=== PATIENT | female | born 1955 | race Caucasian/White ===

== ENCOUNTER 2024-08-07 20:30 | Inpatient (IN) | payer MEDICARE ==
[~2024-08-07] VITALS: Ht 149.9 cm; Wt 72.6 kg
[2024-08-07 21:42] LABS: COVID AG,FIA SOURCE NASAL SWAB
[2024-08-07 21:50] LABS: BASOPHILS % (AUTO) 0.9 % (0.0-2.0); EOSINOPHILS % (AUTO) 3.6 % (1.0-6.0); HEMOGLOBIN 13.5 g/dL (12.0-16.0); LYMPHOCYTES # (AUTO) 1.2 K/uL (1.0-4.8); LYMPHOCYTES % (AUTO) 24.7 % (22.0-44.0); MEAN CORPUSCULAR VOLUME 88 fL (80-100); MONOCYTES # (AUTO) 0.4 K/uL (0.1-1.0); MONOCYTES % (AUTO) 7.4 % (2.0-9.0); NEUTROPHILS # (AUTO) 3.2 K/uL (1.8-7.7); NEUTROPHILS % (AUTO) 63.4 % (40.0-70.0); PLATELET COUNT (AUTO) 163 K/uL (150-450); RED BLOOD CELL COUNT(AUTO) 4.66 MIL/uL (4.00-5.20); RED CELL DISTRIBUTION WIDTH 13.6 % (11.5-14.5)
[2024-08-07 21:53] LABS: ANION GAP 11 mmol/L (8-16); CALCIUM, TOTAL 9.4 mg/dL (8.8-10.5); CARBON DIOXIDE 28 mmol/L (22-29); CHLORIDE 103 mmol/L (98-107); CREATININE 0.84 mg/dL (0.60-1.30); GLOMERULAR FILTR. RATE CALC > 60 mL/min (>60); GLUCOSE,RANDOM 237 mg/dL (70-110); POTASSIUM 4.1 mmol/L (3.5-5.1); SODIUM SERUM 141 mmol/L (136-145); UREA NITROGEN, BLOOD 19 mg/dL (7-18)
[2024-08-07 22:03] LABS: SARS-COV2 (COVID) ANTIGEN,FIA Negative (Negative)
[2024-08-07 22:11] LABS: ALCOHOL, BLOOD (SERUM) < 3 mg/dL (0-10)
[2024-08-07] MEDS ORDERED: OXYC10TA92 PO (22:12)
[2024-08-07] MEDS ORDERED: BUTA1CAP44 PO (22:12)
[2024-08-07 22:47] LABS: PH,URINE DRUG SCREEN 5.5 (5.0-8.0)
[2024-08-07 22:54] LABS: ALCOHOL, URINE DRUG SCREEN NEGATIVE (NEGATIVE); AMPHET/METH SCREEN,URINE POSITIVE (NEGATIVE); BARBITURATE SCREEN, URINE POSITIVE (NEGATIVE); BENZODIAZEPINES SCREEN,URINE NEGATIVE (NEGATIVE); CANNABINOID SCREEN,URINE POSITIVE (NEGATIVE); COCAINE SCREEN,URINE NEGATIVE (NEGATIVE); METHADONE SCREEN, URINE NEGATIVE (NEGATIVE); OPIATE SCREEN,URINE NEGATIVE (NEGATIVE); PHENCYCLIDINE SCREEN,URINE NEGATIVE (NEGATIVE)
[2024-08-08] VITALS (7 sets, daily range): BP systolic 139–147; BP diastolic 69–93; PULSE 78–107; RESP 16–18; TEMP 97.2–97.6; O2SAT 95–98
[2024-08-08] MEDS ORDERED: ZOLPIDEM TARTRATE 10 MG TABLET PO PRN (01:00)
[2024-08-08] MEDS ORDERED: LORazepam 2 MG TABLET PO PRN (01:00)
[2024-08-08] MEDS ORDERED: HALOPERIDOL 5 MG TABLET PO PRN (01:00)
[2024-08-08] MEDS ORDERED: BENZOCAINE/MENTHOL LOZENGE PO PRN (08:15)
[2024-08-08] MEDS ORDERED: ACETAMINOPHEN 325 MG TABLET PO PRN (08:15)
[2024-08-08] MEDS ORDERED: BACITRACIN 28 GM OINTMENT TP PRN (08:15)
[2024-08-08] MEDS ORDERED: PETROLATUM,WHITE 28 GM JELLY TP PRN (08:15)
[2024-08-08] MEDS ORDERED: MAG HYDROX/ALUMINUM HYD/SIMETH ES 30 ML SUSPENSION UDCUP PO PRN (08:15)
[2024-08-08] MEDS ORDERED: ALBUTEROL SULFATE HFA 90 MCG/PUFF 8 GM INHALER IH PRN (08:15)
[2024-08-08] MEDS ORDERED: CloNIDine HCL 0.1 MG TABLET PO PRN (08:15)
[2024-08-08] MEDS ORDERED: MAGNESIUM HYDROXIDE SUSPENSION 30 ML UDCUP PO PRN (08:15)
[2024-08-08] MEDS ORDERED: OMEPRAZOLE 20 MG CAPSULE PO PRN (08:15)
[2024-08-08] MEDS ORDERED: ONDANSETRON 4 MG TABLET PO PRN (08:15)
[2024-08-08] MEDS ORDERED: DOCUSATE SODIUM 100 MG CAPSULE PO PRN (08:15)
[2024-08-08] MEDS: ATENOLOL 25 MG TABLET PO SCH (08:59)
[2024-08-08] MEDS ORDERED: BUTALBITAL/ASPIRIN/CAFFEINE 50-325-40 MG CAPSULE PO PRN (14:45)
[2024-08-08] MEDS: IBUPROFEN 600 MG TABLET PO PRN (22:29)
[2024-08-09 08:51] LABS: ALANINE AMINOTRANSFERASE 46 U/L (12-78); ALBUMIN 3.3 g/dL (3.4-5.0); ALKALINE PHOSPHATASE 89 U/L (46-116); ANION GAP 10 mmol/L (8-16); ASPARTATE AMINOTRANSFERASE 23 U/L (15-37); BILIRUBIN,TOTAL 0.4 mg/dL (0.1-1.0); CALCIUM, TOTAL 9.4 mg/dL (8.8-10.5); CARBON DIOXIDE 25 mmol/L (22-29); CHLORIDE 105 mmol/L (98-107); CHOL/HDL RATIO 3.5 (3.9-5.7); CHOLESTEROL 170 mg/dL (131-200); CREATININE 0.74 mg/dL (0.60-1.30); GLOMERULAR FILTR. RATE CALC > 60 mL/min (>60); GLUCOSE,RANDOM 163 mg/dL (70-110); HDL CHOLESTEROL 49 mg/dL (40-60); LDL CHOL (CALC.) 95 mg/dL (0-130); POTASSIUM 4.3 mmol/L (3.5-5.1); SODIUM SERUM 140 mmol/L (136-145); THYROID STIMULATING HORMONE 0.57 uIU/mL (0.36-3.74); TOTAL PROTEIN, SERUM 6.3 g/dL (6.4-8.2); TRIGLYCERIDES 128 mg/dL (15-150); UREA NITROGEN, BLOOD 18 mg/dL (7-18)
[2024-08-09 09:41] VITALS: BP 166/90; PULSE 90; RESP 18; TEMP 97.9; O2SAT 100
[2024-08-09 10:39] VITALS: BP 155/80; PULSE 84; RESP 16; O2SAT 100
[2024-08-09] MEDS: LOPERAMIDE HCL 2 MG CAPSULE PO PRN (11:23)
[2024-08-09 12:41] VITALS: BP 148/82; PULSE 82; RESP 17; O2SAT 100
[2024-08-09] MEDS: OxyCODONE HCL 5 MG IR TABLET PO PRN (12:41)
[2024-08-09 13:41] VITALS: RESP 17
[2024-08-09 20:59] VITALS: BP 143/84; PULSE 81; RESP 18; TEMP 98.3; O2SAT 96
[2024-08-10] VITALS (8 sets, daily range): BP systolic 142–157; BP diastolic 76–88; PULSE 70–84; RESP 17–18; TEMP 97.4–97.8; O2SAT 96–98
[2024-08-11 08:12] VITALS: BP 139/81; PULSE 65; RESP 16; TEMP 97.7; O2SAT 95
[2024-08-11 08:40] VITALS: RESP 16
[2024-08-11 09:40] VITALS: RESP 16
[2024-08-11 16:14] VITALS: RESP 16
[2024-08-11 17:14] VITALS: RESP 16
[2024-08-11 20:11] VITALS: BP 117/63; PULSE 65; RESP 17; TEMP 97.5
[2024-08-12 09:56] VITALS: BP 115/73; PULSE 63; RESP 16; TEMP 97.2; O2SAT 99
[2024-08-12 20:38] VITALS: BP 104/63; PULSE 62; RESP 16; TEMP 97.5; O2SAT 96
[2024-08-13] VITALS (7 sets, daily range): BP systolic 122–145; BP diastolic 73–83; PULSE 60–68; RESP 16–18; TEMP 97.3–97.6; O2SAT 96–97
[2024-08-14] VITALS: BP 120/72; PULSE 71; RESP 17; TEMP 93.7
[2024-08-14 01:35] VITALS: BP 127/77; PULSE 77; RESP 18; TEMP 97.8
[2024-08-14 02:39] VITALS: RESP 16
[2024-08-14] MEDS ORDERED: ATEN-73 PO (07:37)
[2024-08-14 07:57] VITALS: RESP 17
[2024-08-14 08:59] VITALS: BP 123/65; PULSE 70; RESP 19; TEMP 96.9
== END 2024-08-14 10:15 | disposition home or self-care (01) | DRG 885 ==
LOC: EMS 20:30 → B2X 08-08 01:08
PROVIDERS: ADMIT Psychiatry & Neurology Psychiatry; ATTEND Psychiatry & Neurology Psychiatry
DX: F31.9 Bipolar disorder, unspecified (principal); Z59.00 Homelessness unspecified; J44.9 Chronic obstructive pulmonary disease, unspecified; K21.9 Gastro-esophageal reflux disease without esophagitis; I10 Essential (primary) hypertension; M19.90 Unspecified osteoarthritis, unspecified site; K59.00 Constipation, unspecified; F15.10 Other stimulant abuse, uncomplicated; F12.10 Cannabis abuse, uncomplicated; F19.10 Other psychoactive substance abuse, uncomplicated; F13.10 Sedative, hypnotic or anxiolytic abuse, uncomplicated; Z20.822 Contact with and (suspected) exposure to COVID-19; Z88.0 Allergy status to penicillin; Z91.199 Patient's noncompliance with other medical treatment and regimen due to unspecified reason
CPT/HCPCS: 80048; 80053; 80061; 80307; 83036; 84443; 85025; 99285; G0480

== ENCOUNTER 2025-07-16 20:39 | Emergency (ER) | payer MEDICARE, OTHER ==
[~2025-07-16] VITALS: Ht 152.4 cm; Wt 67.3 kg
[~2025-07-16 20:39] MED LIST: ATEN-73 PO
[2025-07-16 21:24] LABS: PLATELET COUNT (AUTO) 172 K/uL (150-450); RED BLOOD CELL COUNT(AUTO) 4.21 MIL/uL (4.00-5.20); RED CELL DISTRIBUTION WIDTH 15.6 % (11.5-14.5); WHITE BLOOD COUNT (AUTO) 5.0 K/uL (4.5-11.0)
[2025-07-16 21:28] LABS: CALCIUM, TOTAL 8.9 mg/dL (8.8-10.5); CREATININE 0.76 mg/dL (0.60-1.30); GLOMERULAR FILTR. RATE CALC > 60 mL/min (>60); GLUCOSE,RANDOM 141 mg/dL (70-110); SODIUM SERUM 146 mmol/L (136-145); UREA NITROGEN, BLOOD 15 mg/dL (7-18)
[2025-07-16 23:14] VITALS: TEMP 97.9
[2025-07-17 01:44] LABS: COVID AG,FIA SOURCE NASAL SWAB
[2025-07-17 01:51] LABS: APPEARANCE,URINE CLEAR (CLEAR); GLUCOSE, URINE (UA) NEGATIVE (NEGATIVE); LEUKOCYTE ESTERASE ,URINE TRACE (NEGATIVE); NITRATE,URINE NEGATIVE (NEGATIVE); OCCULT BLOOD,URINE NEGATIVE (NEGATIVE); PH,URINE DRUG SCREEN 7.5 (5.0-8.0); SPECIFIC GRAVITIY, URINE 1.025 (1.003-1.030)
[2025-07-17 01:52] LABS: SARS-COV2 (COVID) ANTIGEN,FIA Negative (Negative)
[2025-07-17 02:13] LABS: AMPHET/METH SCREEN,URINE NEGATIVE (NEGATIVE); BARBITURATE SCREEN, URINE POSITIVE (NEGATIVE); CANNABINOID SCREEN,URINE POSITIVE (NEGATIVE); COCAINE SCREEN,URINE NEGATIVE (NEGATIVE); METHADONE SCREEN, URINE NEGATIVE (NEGATIVE)
[2025-07-17 02:14] LABS: ALCOHOL, URINE DRUG SCREEN NEGATIVE (NEGATIVE)
[2025-07-17 02:15] LABS: SQUAMOUS EPITHELIAL CELL,UR Few /LPF (None Seen)
[2025-07-17 02:29] VITALS: BP 122/74; PULSE 67; RESP 14; O2SAT 100
== END 2025-07-17 02:42 | disposition home or self-care (01) ==
LOC: EMS 20:41
DX: F20.9 Schizophrenia, unspecified (principal); I10 Essential (primary) hypertension; F14.90 Cocaine use, unspecified, uncomplicated; F15.90 Other stimulant use, unspecified, uncomplicated; F17.210 Nicotine dependence, cigarettes, uncomplicated; Z98.890 Other specified postprocedural states; Z88.0 Allergy status to penicillin; Z79.899 Other long term (current) drug therapy; Z20.822 Contact with and (suspected) exposure to COVID-19
CPT/HCPCS: 99285; 87426; 80048; 81001; 85025; 36415; 80307; G0480